=== PATIENT | female | born 1960 | race African-American/Black ===

== ENCOUNTER 2019-09-11 08:42 | Emergency (ER) | payer SELFPAY ==
[~2019-09-11] VITALS: Ht 149.9 cm; Wt 68.2 kg
[2019-09-11] MEDS ORDERED: CYCLOBENZAPRINE HCL 10 MG TABLET PO ONE (09:30)
[2019-09-11] MEDS ORDERED: IBUPROFEN 800 MG TABLET PO ONE (09:30)
[2019-09-11 09:45] VITALS: BP 122/79
== END 2019-09-11 10:09 | disposition home or self-care (01) ==
LOC: EMS 08:45
DX: S16.1XXA Strain of muscle, fascia and tendon at neck level, initial encounter (principal); M25.511 Pain in right shoulder; V49.9XXA Car occupant (driver) (passenger) injured in unspecified traffic accident, initial encounter; Y93.89 Activity, other specified; Y92.488 Other paved roadways as the place of occurrence of the external cause; Y99.8 Other external cause status

== ENCOUNTER 2024-05-14 19:14 | Emergency (ER) | payer OTHER ==
[~2024-05-14] VITALS: Ht 149.9 cm; Wt 68.2 kg
[2024-05-14 19:29] LABS: COVID AG,FIA SOURCE NASAL SWAB
[2024-05-14 19:52] LABS: BASOPHILS % (AUTO) 0.3 % (0.0-2.0); EOSINOPHILS % (AUTO) 3.2 % (1.0-6.0); HEMATOCRIT 38.9 % (36-46); LYMPHOCYTES # (AUTO) 0.7 K/uL (1.0-4.8); LYMPHOCYTES % (AUTO) 12.1 % (22.0-44.0); MEAN CORPUSCULAR HEMOGLOBIN 28.9 pg (26.0-34.0); MEAN CORPUSCULAR HGB CONC 33.4 G/dL (31.0-37.0); MEAN CORPUSCULAR VOLUME 86 fL (80-100); MONOCYTES # (AUTO) 0.7 K/uL (0.1-1.0); MONOCYTES % (AUTO) 11.8 % (2.0-9.0); NEUTROPHILS # (AUTO) 4.4 K/uL (1.8-7.7); NEUTROPHILS % (AUTO) 72.6 % (40.0-70.0); PLATELET COUNT (AUTO) 245 K/uL (150-450); RED CELL DISTRIBUTION WIDTH 13.8 % (11.5-14.5)
[2024-05-14 19:55] LABS: INFLUENZA TYPE B NEGATIVE FOR TYPE B (NEGATIVE); SARS-COV2 (COVID) ANTIGEN,FIA Negative (Negative)
[2024-05-14 19:58] LABS: INFLUENZA TYPE A POSITIVE FOR TYPE A (NEGATIVE)
[2024-05-14 19:58] LABS: ANION GAP 11 mmol/L (8-16); CALCIUM, TOTAL 8.4 mg/dL (8.8-10.5); CARBON DIOXIDE 24 mmol/L (22-29); CHLORIDE 101 mmol/L (98-107); CREATININE 0.68 mg/dL (0.60-1.30); GLOMERULAR FILTR. RATE CALC > 60 mL/min (>60); GLUCOSE,RANDOM 145 mg/dL (70-110); POTASSIUM 3.4 mmol/L (3.5-5.1); SODIUM SERUM 136 mmol/L (136-145); UREA NITROGEN, BLOOD 7 mg/dL (7-18)
[2024-05-14 20:00] LABS: PROTHROMBIN TIME 10.4 SEC (9.4-11.6)
[2024-05-14 20:04] LABS: ALANINE AMINOTRANSFERASE 18 U/L (12-78); ALBUMIN 3.2 g/dL (3.4-5.0); ALKALINE PHOSPHATASE 145 U/L (46-116); ASPARTATE AMINOTRANSFERASE 19 U/L (15-37); BILIRUBIN,TOTAL 1.1 mg/dL (0.1-1.0); TOTAL PROTEIN, SERUM 7.6 g/dL (6.4-8.2)
[2024-05-14 20:06] LABS: LACTIC ACID 1.1 mmol/L (0.4-2.0)
[2024-05-14] MEDS: ACETAMINOPHEN 500 MG TABLET PO ONE (20:48)
[2024-05-14] MEDS ORDERED: 0.9% SODIUM CHLORIDE 10 ML SYRINGE IVP PRN (21:15)
[2024-05-14] MEDS: SODIUM CHLORIDE 0.9% 1,350 ML IV ONE (21:15)
[2024-05-14] MEDS: CefTRIAXone 1 GM/DEXTROSE 50 ML IV ONE (21:34)
[2024-05-14 21:38] LABS: TROPONIN I-HIGH SENSITIVITY 11 ng/L (<51)
[2024-05-14 23:12] VITALS: BP 151/71; PULSE 99; RESP 24; TEMP 99
[2024-05-14 23:13] LABS: APPEARANCE,URINE CLEAR (CLEAR); BILIRUBIN,URINE NEGATIVE (NEGATIVE); COLOR,URINE LIGHT YELLOW (YELLOW); GLUCOSE, URINE (UA) NEGATIVE (NEGATIVE); KETONES,URINE NEGATIVE (NEGATIVE); LEUKOCYTE ESTERASE ,URINE NEGATIVE (NEGATIVE); NITRATE,URINE NEGATIVE (NEGATIVE); OCCULT BLOOD,URINE NEGATIVE (NEGATIVE); PROTEIN,URINE NEGATIVE (NEGATIVE); SPECIFIC GRAVITIY, URINE 1.011 (1.003-1.030); UROBILINOGEN,URINE <=1.0 mg/dL (<=1.0)
[2024-05-15] MEDS ORDERED: OSEL75CA45 PO (00:13)
[2024-05-15] MEDS ORDERED: BENZ-227 PO (00:14)
== END 2024-05-15 00:34 | disposition home or self-care (01) ==
LOC: EMS 19:14
DX: J10.1 Influenza due to other identified influenza virus with other respiratory manifestations (principal); Z20.822 Contact with and (suspected) exposure to COVID-19
CPT/HCPCS: 99285; 96365; 71045; 87426; 80053; 81003; 83605; 83880; 84484; 85025; 85610; 87040; 87804; 93005; 84145; 36415; J0696